=== PATIENT | male | born 1995 | race Caucasian/White ===

== ENCOUNTER 2018-11-05 08:46 | Day surgery (SDC) | payer OTHER ==
[~2018-11-05] VITALS: Ht 172.7 cm; Wt 72.6 kg
[2018-11-05 09:03] VITALS: Ht 172.7 cm; Wt 72.6 kg
[2018-11-05] MEDS ORDERED: NORCO1 TA2 (09:16)
[2018-11-05] MEDS ORDERED: KEFLEX500 M1 (09:16)
[2018-11-05 09:42] LABS: microscopic required? NO
[2018-11-05 10:06] LABS: urine erythrocyte NEGATIVE (NEGATIVE)
[2018-11-05 10:10] LABS: BASOPHIL % 0.7 % (0-2); PLATELET COUNT 199 x10^3mcL (130-400); RED CELL DISTRIBUTION WIDTH 11.8 % (11.5-14.5)
[2018-11-05 14:11] VITALS: BP 139/70
== END 2018-11-05 13:05 | disposition home or self-care (01) ==
LOC: ED 08:46 → DS 10:30
PROVIDERS: Neuromusculoskeletal Medicine, Sports Medicine
PROC: 0KCC0ZZ Extirpation of Matter from Right Hand Muscle, Open Approach (ICD-10-PCS; principal; 2018-11-05 11:15)
DX: S60.351A Superficial foreign body of right thumb, initial encounter (principal); Z79.2 Long term (current) use of antibiotics; W45.8XXA Other foreign body or object entering through skin, initial encounter; Y92.9 Unspecified place or not applicable; Y99.0 Civilian activity done for income or pay
CPT/HCPCS: J0690; J2250; J2704; J3010; J3490; J7120